=== PATIENT | female | born 1995 | race Hispanic/Latino ===

== ENCOUNTER → 2021-05-17 | Emergency (ER) | payer BC ==
[~2021-05-17] VITALS: Ht 175.3 cm; Wt 108.9 kg
[~2021-05-17] MED LIST: ACETAMIN/BUTALBITAL/CAFFEINE TAB PO ONE; DIPHENHYDRAMINE HCL INJ 50 MG/ML VIAL IV ONE; FIORICET 50-301 EACH PO; MAGNESIUM SULFATE 2GM/50ML 50 ML IV ONE; METOCLOPRAMIDE HCL 10 MG/2ML VIAL IV ONE; SODIUM CHLORIDE 0.9% 1000ML 1,000 ML IV STA
== END | disposition home or self-care (01) ==
LOC: ER 20:25
DX: G43.909 Migraine, unspecified, not intractable, without status migrainosus (principal)
CPT/HCPCS: 70450; 99283; J1200; J2765; J3475; J7030; U0002